=== PATIENT | male | born 2000 | race Asian ===

== ENCOUNTER 2021-03-31 11:25 | Outpatient (REF) | payer MEDICAID, SELFPAY | END 2021-03-31 11:26 | disposition home or self-care (01) | LOC: HO.HMGCLDS 11:25 | PROVIDERS: Visit Provider Internal Medicine | DX: Z20.822 Contact with and (suspected) exposure to COVID-19 (principal) | CPT/HCPCS: C9803; U0003; U0005 ==

== ENCOUNTER 2024-02-27 11:44 | Outpatient (REF) | payer MEDICAID, SELFPAY ==
[2024-02-27 13:01] LABS: MANUAL DIFF FLAG NO
[2024-02-27 13:05] LABS: Basophils Absolute Auto 0.1 X10*3/uL (0.0-0.2); Basophils Percent Auto 0.6 % (0-2); Eosinophils Absolute Auto 0.1 X10*3/uL (0.0-0.4); Eosinophils Percent Auto 0.6 % (0-4); Hematocrit 47.1 % (42.0-52.0); Hemoglobin 15.4 g/dl (14.0-18.0); Imm Gran Abs Auto 0.02 X10*3/uL (0.00-0.03); Imm Gran Pct Auto 0.2 % (0.0-0.4); Lymphocytes Percent Auto 21.2 % (20-40); Mean Corpuscular HGB Conc 32.7 g/dl (31.0-36.0); Mean Corpuscular Hemoglobin 28.4 pg (27.0-33.0); Mean Corpuscular Volume 86.7 fL (80.0-98.0); Mean Platelet Volume 10.9 fL (9.4-12.4); Monocytes Absolute Auto 0.5 X10*3/uL (0.1-1.2); Monocytes Percent Auto 5.3 % (2-11); Neutrophils Absolute Auto 6.7 x10*3/uL (2.0-8.3); Neutrophils Percent Auto 72.1 % (45-73); Platelet Count 237 X10*3/uL (160-400); Red Blood Count 5.43 X10*6/uL (4.60-5.80); Red Cell Distribution Width 14.5 % (11.0-16.0); White Blood Count 9.3 X10*3/uL (4.8-10.8)
[2024-02-27 13:30] LABS: Alanine Aminotransferase 32 U/L (0-40); Albumin Level 4.8 g/dL (3.5-5.0); Anion Gap 13 (12-20); Aspartate Amino Transferase 32 U/L (5-37); Bilirubin Total 0.8 mg/dL (0.0-1.0); Blood Urea Nitrogen 9 mg/dL (9-16); Calcium 9.5 mg/dL (8.4-10.2); Carbon Dioxide 27 mmol/L (22-29); Chloride 102 mmol/L (96-108); Cholesterol 135 mg/dL (<200); Estimated Glomerular Filt Rate > 60; Glucose Random 103 mg/dL (60-115); HDL Cholesterol 51 mg/dL (>40); LDL Cholesterol Calculated 75 mg/dL (<100); Potassium 4.3 mmol/L (3.3-5.1); Sodium 138 mmol/L (135-145); Total Protein 8.1 g/dL (6.5-8.0); Triglycerides 45 mg/dL (<150)
[2024-02-27 13:56] LABS: Alkaline Phosphatase 83 U/L (39-117); Thyroid Stimulating Hormone 1.55 uIU/mL (0.32-4.0)
== END 2024-02-27 11:45 | disposition home or self-care (01) ==
LOC: HO.10HDL 11:44
PROVIDERS: Visit Provider Internal Medicine
DX: I10 Essential (primary) hypertension (principal); R55 Syncope and collapse
CPT/HCPCS: 36415; 80053; 80061; 84443; 85025

== ENCOUNTER 2025-02-09 21:36 | Emergency (ER) | payer MEDICAID, SELFPAY ==
--- NOTE | 2025-02-09 | ECG_ITS ---
Test Reason : SYNCOPE Blood Pressure : */* mmHG Vent. Rate : 67 BPM Atrial Rate : 67 BPM P-R Int : 130 ms QRS Dur : 88 ms QT Int : 388 ms P-R-T Axes : 35 85 70 degrees QTcB Int : 409 ms Normal sinus rhythm Normal ECG No previous ECGs available Referred By: Generic ED Physician Electronically Signed By: ROSA BUSCH MD
[2025-02-09 21:42] VITALS: BP 112/55; PULSE 74; RESP 18; TEMP 36.3; O2SAT 99; BMI 21.6
[2025-02-09 22:02] LABS: MANUAL DIFF FLAG NO
[2025-02-09 22:04] LABS: Hematocrit 41.1 % (42.0-52.0); Hemoglobin 13.5 g/dl (14.0-18.0); Imm Gran Abs Auto 0.01 X10*3/uL (0.00-0.03); Imm Gran Pct Auto 0.1 % (0.0-0.4); Lymphocytes Absolute Auto 3.2 X10*3/uL (1.2-4.9); Mean Corpuscular HGB Conc 32.8 g/dl (31.0-36.0); Mean Corpuscular Hemoglobin 28.6 pg (27.0-33.0); Mean Corpuscular Volume 87.1 fL (80.0-98.0); NRBC Abs Auto 0.000 X10*3/uL (0.0-0.012); NRBC Pct Auto 0.0 /100WBC (0.0-0.2); Platelet Count 192 X10*3/uL (160-400); Red Blood Count 4.72 X10*6/uL (4.60-5.80); White Blood Count 10.6 X10*3/uL (4.8-10.8)
[2025-02-09 22:18] LABS: Alanine Aminotransferase 25 U/L (0-40); Albumin Level 4.5 g/dL (3.5-5.0); Alkaline Phosphatase 65 U/L (39-117); Anion Gap 13 (12-20); Aspartate Amino Transferase 24 U/L (5-37); Blood Urea Nitrogen 14 mg/dL (9-16); Calcium 8.5 mg/dL (8.4-10.2); Carbon Dioxide 24 mmol/L (22-29); Chloride 107 mmol/L (96-108); Creatinine Clr Calc Pharmacy 98.1; Estimated Glomerular Filt Rate > 60; Magnesium 2.0 mg/dL (1.6-2.6); Potassium 3.4 mmol/L (3.3-5.1); Sodium 141 mmol/L (135-145); Total Protein 6.9 g/dL (6.5-8.0)
[2025-02-09 23:36] VITALS: BP 111/63; PULSE 70; PULSE 80; RESP 14; TEMP 36.8; O2SAT 100
--- NOTE | 2025-02-10 02:02 | PC.NURSE ---
Patient states he wants to leave, states he has been waiting to long to see a provider, this RN encouraged patient to stay, patient stated he would wait another 10 minutes then leave, patient waited- still no provider, this RN offered to go make a provider aware that he wants to leave, patient said no.
== END 2025-02-10 02:05 | disposition left against medical advice (07) ==
PROVIDERS: Emergency Provider Emergency Medicine; PCP Internal Medicine
DX: R55 Syncope and collapse (principal); R51.9 Headache, unspecified; Z79.899 Other long term (current) drug therapy
CPT/HCPCS: 36415; 80053; 83735; 85025; 93005; 99283; 99285

== ENCOUNTER → 2025-02-09 21:52 | Outpatient (BNV) | payer MEDICAID, SELFPAY | PROVIDERS: Emergency Provider Emergency Medicine; PCP Internal Medicine; Visit Provider Internal Medicine Cardiovascular Disease | DX: R55 Syncope and collapse (principal) | CPT/HCPCS: 93010 ==